=== PATIENT | male | born 1990 | race Asian ===

== ENCOUNTER 2023-02-12 14:05 | Emergency (ER) | payer OTHER ==
[~2023-02-12] VITALS: Ht 165.1 cm; Wt 70.8 kg
[2023-02-12 14:40] VITALS: BP 136/74; TEMP 98.4
[2023-02-12 16:17] VITALS: O2SAT 99
== END 2023-02-12 16:18 | disposition home or self-care (01) ==
LOC: ER 14:20
DX: M79.672 Pain in left foot (principal); M25.562 Pain in left knee; V03.90XA Pedestrian on foot injured in collision with car, pick-up truck or van, unspecified whether traffic or nontraffic accident, initial encounter; Y93.89 Activity, other specified; Y92.89 Other specified places as the place of occurrence of the external cause; Y99.8 Other external cause status
CPT/HCPCS: 73564-TC; 73610-TC; 73630-TC